=== PATIENT | male | born 1965 | race Caucasian/White ===

== ENCOUNTER → 2021-04-10 | Outpatient (CLI) | payer OTHER | LOC: M.RAD 16:04 | PROVIDERS: ATTEND Internal Medicine Critical Care Medicine | DX: R06.02 Shortness of breath (principal); R60.0 Localized edema; I10 Essential (primary) hypertension; Z88.1 Allergy status to other antibiotic agents; Z88.8 Allergy status to other drugs, medicaments and biological substances ==

== ENCOUNTER → 2021-05-06 | Outpatient (CLI) | payer OTHER ==
--- NOTE | 2021-05-06 14:46 | 2DMMODE ---
[place] [address] 2 D/M-MODE ECHOCARDIOGRAM Name: ANAID RUSSO Room: [facility]#: [id number] Admission: 05/06/21 Attend Phys: Shad Hummel MD Discharge: Date of : 63 Date of Service: 05/06/21 1446 Report #: [id number] THIS REPORT FOR: cc: [place] Wolf MD, Dean L. MD Liston, Michael J. MD [facility] ~ APPROVED REPORT Study performed: 05/06/2021 13:52:15 EXAM: Comprehensive 2D, Doppler, and color-flow Echocardiogram Patient Location: Out-Patient BSA: 2.35 HR: 69 bpm BP: 146/82 mmHg Other Information Study Quality: Good Indications Dyspnea 2D Dimensions IVSd: 12.82 (7-11mm) LVOT Diam: 20.17 (18-24mm) LVDd: 46.59 mm PWd: 10.42 (7-11mm) Ascending Ao: 28.25 (22-36mm) LVDs: 25.04 (25-40mm) Aortic Root: 30.06 mm Volumes Left Atrial Volume (Systole) LA ESV Index: 13.70 mL/m2 Aortic Valve AoV Peak Jamie.: 1.92 m/s AO Peak Gr.: 14.73 mmHg LVOT Max P.30 mmHg AO Mean Gr.: 8.05 mmHg LVOT Mean P.23 mmHg LVOT Max V: 1.26 m/s AO V2 VTI: 36.70 cm LVOT Mean V: 0.83 m/s ELENA (VTI): 2.29 cm2 LVOT V1 VTI: 26.26 cm Mitral Valve E/A Ratio: 0.87 [place] [address] 2 D/M-MODE ECHOCARDIOGRAM Name: ANAID RUSSO Room: [facility]#: [id number] Admission: 05/06/21 Attend Phys: Shad Hummel MD Discharge: Date of : 63 Date of Service: 05/06/21 1446 Report #: [id number] MV Decel. Time: 221.70 ms MV E Max Jamie.: 1.13 m/s MV PHT: 64.29 ms MVA (PHT): 3.42 cm2 TDI E/Lateral E': 9.42 E/Medial E': 11.30 Medial E' Jamie.: 0.10 m/s Lateral E' Jamie.: 0.12 m/s Pulmonary Valve PV Peak Jamie.: 1.18 m/s PV Peak Gr.: 5.56 mmHg Tricuspid Valve RAP Estimate: 5.00 mmHg TR Peak Gr.: 23.90 mmHg RVSP: 28.90 mmHg PA Pressure: 28.90 mmHg Left Ventricle The left ventricle is normal size. There is normal LV segmental wall motion. There is normal left ventricular wall thickness. Left ventricular systolic function is normal. LVEF is 65-70%. Grade I - abnormal relaxation pattern. Right Ventricle The right ventricle is normal size. The right ventricular systolic function is normal. Atria The left atrium size is normal. The right atrium size is normal. Aortic Valve The aortic valve is normal in structure. Trace aortic regurgitation. There is no aortic valvular stenosis. Mitral Valve The mitral valve is normal in structure. There is no mitral valve regurgitation noted. No evidence of mitral valve stenosis. Tricuspid Valve The tricuspid valve is normal in structure. Mild tricuspid regurgitation. No pulmonary hypertension. Pulmonic Valve The pulmonary valve is normal in structure[place] [address] 2 D/M-MODE ECHOCARDIOGRAM Name: ANAID RUSSO Room: [facility]#: [id number] Admission: 05/06/21 Attend Phys: Shad Hummel MD Discharge: Date of : 63 Date of Service: 05/06/21 1446 Report #: [id number] valvular regurgitation. Great Vessels The aortic root is normal in size. IVC is normal in size and collapses >50% with inspiration. Pericardium There is no pericardial effusion. <Conclusion> The left ventricle is normal size. There is normal left ventricular wall thickness. Left ventricular systolic function is normal. LVEF is 65-70%. Grade I - abnormal relaxation pattern. There is normal LV segmental wall motion. Trace aortic regurgitation. Mild tricuspid regurgitation. No pulmonary hypertension. IVC is normal in size and collapses >50% with inspiration. <ELECTRONICALLY SIGNED> By: Robert Ty MD, [facility] 05/06/21 1446 1446 1446 Robert Ty MD, FACC /INF
== END ==
LOC: M.PUL 04-11 12:27
PROVIDERS: ATTEND Internal Medicine Critical Care Medicine
DX: I07.1 Rheumatic tricuspid insufficiency (principal); R06.02 Shortness of breath; R06.00 Dyspnea, unspecified; G47.19 Other hypersomnia; E66.01 Morbid (severe) obesity due to excess calories